=== PATIENT | male | born 2000 | race Caucasian/White ===

== ENCOUNTER 2022-05-29 13:28 | Emergency (ER) | payer OTHER, SELFPAY ==
[2022-05-29 13:30] VITALS: BP 126/72; PULSE 79; RESP 14; TEMP 36.6; O2SAT 100; BMI 22.4
--- NOTE | 2022-05-29 13:56 | EDS_ITS ---
HPI History of Present Illness Chief Complaint: Head Injury Detail of Chief Complaint: Closed head injury Informant: patient and other (Coworker showed me video of accident) Onset/Context/Timing Onset: Hours Mechanism/Context: Blunt Injury Location of pain/injuries: - (Left preauricular area in the proximity of the TMJ joint) Quality of Pain: Dull Location: Left TMJ region Current Severity: Mild Maximum Severity: Severe Worsened by: Blunt trauma Relieved by: Nothing Associated Symptoms Associated Symptoms: Negative for Parasthesias, Weakness, Loss of function, Inability to ambulate, Loss of consciousness or Amnesia Narrative Narrative: Patient is a healthy 22-year-old male on no medicines with no allergies who was at work when he was struck by an auger. He was struck in the proximity of the left TMJ region. There is an abrasion noted. Last tetanus was age 16. He denies loss conscious. He denies amnesia. Does complain of head pain. He does report ringing's ears on the left. He denies epistaxis. Denies malalignment of his teeth. Denies inability to open or close his mouth completely. He denies neck pain. Denies paresthesia, anesthesia medics present at time of the injury. He has no other complaints Tetanus Immunization: 5-10 years Prior similar symptoms: No Recent Illness/Hospitalization: No PFSH PFSH Medical History no medical history no medical history Allergy/AdvReac Type Severity Reaction Status Date / Time No Known Allergies Allergy Verified 05/29/22 13:29 Surgical History no surgical history no surgical history Social History (Updated 05/29/22 @ 13:[address] Mik Neri MD) household members: none substance use type: does not use ROS ROS ED Constitutional Constitutional ED: Denies chills or fever(s) Eyes Eyes: Denies blurry vision or change in vision ENT ENT ED: Reports other Details: Tinnitus left ear ; Denies ear pain, rhinorrhea or sore throat Cardiovascular Cardiovascular: Denies chest pain Respiratory/Chest Respiratory/Chest: Denies dyspnea Gastrointestinal Gastrointestinal: Denies nausea or vomiting Musculoskeletal Musculoskeletal: Reports other Details: Abrasion proximal dorsal right forearm in the proximity of the lateral epicondyles ; Denies arthralgias, back pain, myalgias or neck pain Integumentary Reports Abrasions Neurologic Neurologic: Reports headache(s); Denies paresthesias or weakness Hematologic/Lymphatic Hematologic/Lymphatic: Denies easy bleeding or easy bruising EXAM Physical Exam Const Vital Signs: 05/29/22 13:30 Temperature 98 F Temperature Source Temporal Pulse Rate 79 Respiratory Rate 14 Blood Pressure 126/72 H Blood Pressure Mean 90 Pulse Ox 100 Oxygen Delivery Method Room Air Positive well nourished and well developed General Appearance ED: well developed and NAD HEENT Reports TM's clear HEENT Narrative: Abrasion near the left TMJ. There is no palpable oppression. There is evidence of malocclusion. There is no dental trauma. Patient is able to open and close his mouth completely. There is no hemotympanum. There is no trauma to the nose. trauma Tympanic Membrane ED: Yes TM's clear Eyes PERRL and EOMs intact bilaterally General Eye ED: Yes other Other Details: There is no subconjunctival hemorrhage noted Neck full ROM General: Negative for tenderness Chest Wall inspection of chest normal and palpation of chest normal Resp normal respiratory effort and clear to auscultation bilaterally Cardio regular rhythm, S1 normal heart sound, S2 normal heart sound and no murmurs Rate: regular rate GI normal to inspection, nondistended, normoactive bowel sounds, non-tender and non-distended Extremity full ROM Extremity Narrative: Abrasion proximal dorsal right forearm distal the lateral epicondyle there is no pain the patient over the radial head or lateral epicondyle. There is no pain the patient over the olecranon process. He has full active range of motion at the wrist, elbow and shoulder. Neuro oriented x3, CN's II-XII intact bilaterally, moves all extremities, no focal motor deficits and no sensory deficits noted [place] Coma Scale: document GCS findings Spontaneous Obeys Commands Oriented 15 Sensorium / Orientation: alert Deep Tendon Reflexes: Rt Triceps (C7): 2+, Lt Triceps (C7): 2+, Rt Biceps (C5, C6): 2+, Lt Biceps (C5, C6): 2+, Rt Brachioradialis (C6): 2+, Lt Brachioradialis (C6): 2+, Rt Patellar (L4): 2+, Lt Patellar (L4): 2+, Rt Ankle (S1): 2+ and Lt Ankle (S1): 2+ Deep Tendon Reflexes Back: Rt Patellar (L4): 2+, Lt Patellar (L4): 2+, Rt Ankle (S1): 2+ and Lt Ankle (S1): 2+ Plantar Reflex: Downgoing: bilateral (There is no clonus.) Psych mental status grossly normal and thought process normal Skin no rashes or lesions noted, skin turgor normal and no jaundice Trauma: abrasion MDM MDM MDM Narrative Medical decision making narrative: Patient has evidence of closed head injury with an abrasion left side of the face near the left TMJ joint. Since there is no tenderness over the TMJ and no pain with opening closing mouth and no evidence of malocclusion imaging of the facial bones not obtained. Per the [place] head rule and the [place] rule imaging of the head is not indicated. C-spine films were not obtained since he has no neck pain and no tenderness posterior side of his neck in the midline. History & Record Review Discussion w/independent historian: Patient and Friend (Coworker showed me the video. Patient did not get knocked to his feet.) Differential Diagnosis Differential Diagnosis: Concussion based on normal neurologic exam imaging was not obtained per the [place] head rule and the [place] rule. He does have an abrasion. Tetanus does not need to be updated. We will have nurse clean wound. Discharge Plan Triage Chief Complaint: Head Injury ED Provider: Mik Neri Dx/Rx/DC Orders Clinical Impression: Concussion without loss of consciousness, Abrasion of face, Abrasion of right forearm, initial encounter Instructions: ED Abrasion, ED Concussion Referrals: [facility] [Group of Physicians] - 3-5 Days Activity Restrictions/Additional Instructions: Recommend looking up the [employer] website for advancement of activity for concussion. Patient was informed as was his coworker that the quick as he would be able to return to activity is 7 days. He was explained the reason why this is important and also to avoid any activity that puts him at risk of head injury until his symptoms have totally resolved. Disposition Disposition: Home, Self Care
== END 2022-05-29 14:32 | disposition home or self-care (01) ==
LOC: ED 14:14
PROVIDERS: Emergency Provider Emergency Medicine; Visit Provider Emergency Medicine
DX: S06.0X0A Concussion without loss of consciousness, initial encounter (principal); S00.81XA Abrasion of other part of head, initial encounter; S50.811A Abrasion of right forearm, initial encounter; H93.12 Tinnitus, left ear; W22.8XXA Striking against or struck by other objects, initial encounter; Y99.0 Civilian activity done for income or pay
CPT/HCPCS: 99282